=== PATIENT | male | born 2000 | race Caucasian/White ===

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

== ENCOUNTER 2022-07-31 16:34 | Emergency (ER) | payer OTHER, SELFPAY ==
--- NOTE | 2022-07-31 16:40 | ED.URI ---
HPI - URI/Sore Throat General Chief Complaint: Upper Respiratory Infection Stated Complaint: sore throat Time Seen by Provider: 07/31/22 16:40 Source: patient and RN notes reviewed History of Present Illness HPI Narrative: patient is a 21-year-old male presents to the Urgent Care with complaints of a sore throat for the last 2 days. Also reports of headache. Denies fever, nausea, vomiting or ill exposures. States that he has been taking Tylenol, ibuprofen and using cough drops. No other acute complaints. No acute distress noted. Patient aware of the plan of care. Some parts of this dictation were generated by voice recognition software and may contain typographical and/or grammatical inaccuracies. Related Data Home Medications Medication Instructions Recorded Confirmed No Home Medications 07/31/22 07/31/22 Allergies Allergy/AdvReac Type Severity Reaction Status Date / Time No Known Allergies Allergy Verified 05/19/21 11:22 Review of Systems Review of Systems: CONSTITUTIONAL: Denies fever, chills, or sweats. EYES: Denies visual changes, redness, or discharge. ENT: Denies rhinorrhea, congestion, Otalgia. Reports a sore throat CARDIOVASCULAR: Denies chest pain, palpitations, or edema. RESPIRATORY: Denies cough or dyspnea. GASTROINTESTINAL: Denies abdominal pain, nausea, vomiting, or diarrhea. GENITOURINARY: Denies dysuria or hematuria. SKIN: Denies rash or itching. MUSCULOSKELETAL: Denies back pain, joint pain, or myalgia. NEUROLOGIC: reports of headache All other systems reviewed are negative, except as documented in HPI. PMFSH Comments At the time of my signature, I reviewed and agree with the nursing past medical, surgical, social, and family history. There is no relevant family history pertinent to the patient complaint. Exam Narrative: GENERAL: This is a well-nourished, well-developed patient, in no apparent distress. HEAD: normocephalic, atraumatic. EYES: PERRL. Sclera clear/white. Vision is grossly intact. EARS: External ears normal, auditory canals clear and without drainage, TMs normal without perforation. Hearing grossly intact. NOSE: External nose normal with no obvious nasal discharge, nares without redness, no rhinorrhea. THROAT: Mucous membranes moist, mild erythema in the posterior oropharynx without exudate or ulceration. Moderate Postnasal drainage NECK: Neck supple, non-tender without lymphadenopathy CARDIOVASCULAR: Regular rate and rhythm without murmurs, gallops, or rubs. RESPIRATORY: Clear to auscultation. Breath sounds equal bilaterally. No wheezes, rales, or rhonchi. SKIN: warm, intact with no suspicious lesions or rash, good texture and turgor. NEURO: awake, alert, and oriented to person, place and time. There were no obvious focal neurologic abnormalities. EXTREMITIES: No clubbing, cyanosis, or edema. Course Course Level of Care: Express Care Visit Vital Signs Vital signs: Vital Signs Temperature 98.2 F 07/31/22 16:50 Pulse Rate 104 H 07/31/22 16:50 Respiratory Rate 16 07/31/22 16:50 Blood Pressure 123/67 07/31/22 16:50 Pulse Oximetry 98 07/31/22 16:50 Oxygen Delivery Room Air 07/31/22 16:50 Temperature 98.2 F 07/31/22 16:50 Pulse Rate 104 H 07/31/22 16:50 Respiratory Rate 16 07/31/22 16:50 Blood Pressure 123/67 07/31/22 16:50 Pulse Oximetry 98 07/31/22 16:50 Oxygen Delivery Room Air 07/31/22 16:50 reviewed MDM - URI/Sore Throat MDM Narrative Medical decision making narrative: due to the lack of resources, unable to do a rapid strep test in the facility. We will culture the strep and sent to the lab. Culture takes approximately 2-3 days for results and we will only call for positives. Advised the patient take a daily antihistamine such as Claritin / Zyrtec/Benadryl. Use Tylenol/ ibuprofen as needed. Follow-up with your PCP within 2-5 days or for worsening symptoms or failure to improve. Differential Diagnosis Differ
[2022-07-31 16:50] VITALS: BP 123/67; PULSE 104; RESP 16; TEMP 36.8; O2SAT 98
== END 2022-07-31 17:20 | disposition home or self-care (01) ==
PROVIDERS: Emergency Provider Nurse Practitioner Family
DX: J02.9 Acute pharyngitis, unspecified (principal)
CPT/HCPCS: 87081; 99212; G0463

== ENCOUNTER 2023-04-23 11:05 | Emergency (ER) | payer OTHER, SELFPAY ==
[2023-04-23 11:17] VITALS: BP 125/69; PULSE 100; RESP 16; TEMP 36.7; O2SAT 100
--- NOTE | 2023-04-23 12:35 | ED.BACK ---
HPI - Back Pain/Injury General Chief Complaint: Back Pain/Injury Stated Complaint: Lower Left Flank Pain Source: patient, RN notes reviewed and old records reviewed Mode of arrival: ambulatory Limitations: no limitations History of Present Illness MD elicited complaint: back pain Related Data Home Medications Medication Instructions Recorded Confirmed No Home Medications 07/31/22 04/23/23 Allergies Allergy/AdvReac Type Severity Reaction Status Date / Time No Known Allergies Allergy Verified 04/23/23 11:21 Review of Systems Review of Systems: CONSTITUTIONAL: Denies fever, chills, or sweats. CARDIOVASCULAR: Denies chest pain, palpitations, or edema. RESPIRATORY: Denies cough or dyspnea. GASTROINTESTINAL: Denies abdominal pain, nausea, vomiting, or diarrhea. GENITOURINARY: Denies dysuria or hematuria. SKIN: Denies rash or itching. MUSCULOSKELETAL: Reports back pain. Joint pain or myalgia. NEUROLOGIC: Denies headache, numbness, or weakness. All systems reviewed & are unremarkable except as noted in HPI and below PMFSH Comments At time of signature, agree with nursing past medical, surgical, social and family history. There is no relevant family history pertinent to the presenting complaint Exam Narrative: GENERAL: Well-appearing, well-nourished, and in no acute distress. HEAD: Normocephalic, atraumatic. EYES: PERRLA and EOMI. NECK: Supple. No lymphadenopathy. CHEST: Clear to auscultation. No respiratory distress. HEART: Regular rate and rhythm. Distal pulses palpable and equal, cap refill <3 seconds ABDOMEN: Soft, nontender, nondistended, normal active bowel sounds, no palpable or pulsatile masses. No CVA tenderness MUSCULOSKELETAL: Normal range of motion and strength in all extremities; 5/5 strength with hip flexion and extension, dorsiflexion and extension, knee flexion and extension, plantar flexion and extension. Normal sensation in dermatomal distributions with sensitivity to light touch and pain. No midline back tenderness to palpation. No paraspinal tenderness. Transfers from lying to sitting to standing. SKIN: Warm, dry, no rash. No ecchymosis, erythema, open wounds to back. NEURO: No focal deficits. Alert and oriented x3. Reflexes intact. Normal gait. PSYCH: Normal mood and affect Course Course Emergency Course: Patient is aware of diagnosis, understands and agrees to treatment plan. Anticipatory guidance given. Patient agrees to follow-up as directed and is aware of reasons to seek care at the emergency department. Portions of this record may have been created with voice recognition software Level of Care: Express Care Visit Vital Signs Vital signs: Vital Signs Oxygen Delivery Room Air 04/23/23 11:15 Temperature 36.7 C 04/23/23 11:17 Pulse Rate 100 04/23/23 11:17 Respiratory Rate 16 04/23/23 11:17 Blood Pressure 125/69 04/23/23 11:17 Pulse Oximetry 100 04/23/23 11:17 Oxygen Delivery Room Air 04/23/23 11:17 Reviewed MDM - Back Pain/Injury MDM Narrative Medical decision making narrative: No risk factors or findings concerning for epidural abscess, diskitis, vertebral osteomyelitis, cord compression, cauda equina, vertebral fracture or bone malignancy, AAA, or pyelonephritis. Patient instructed to consider further imaging and workup through their primary care physician as an outpatient if symptoms persist. Discharge Plan Discharge Prescriptions: No Action No Home Medications Follow-up/Referrals: PHYSICIAN,HAULING CONTRACTOR [Primary Care Provider] - [place] Coma Scale Eyes: Open Verbal: Oriented and Alert
--- NOTE | 2023-04-23 12:46 | PC.NURSE ---
PT NOT IN ROOM WHEN PROVIDER WENT IN FOR EXAM.
--- NOTE | 2023-04-23 12:47 | PC.NURSE ---
Addendum entered by Alee Cleaning RN 04/23/23 12:48: PT WAS SPOKEN WITH AT 1230 Original Note: PT IS SITTING IN CHAIR IN EXAM ROOM AT THIS TIME AWAITING PROVIDER EXAM. PT DENIES ANY NEEDS OR COMPLAINTS.
== END 2023-04-23 12:50 | disposition left against medical advice (07) ==
LOC: EXPBETH 11:09
PROVIDERS: Emergency Provider Registered Nurse
DX: Z53.21 Procedure and treatment not carried out due to patient leaving prior to being seen by health care provider (principal)
CPT/HCPCS: 99199

== ENCOUNTER 2023-06-16 13:26 | Emergency (ER) | payer OTHER, SELFPAY ==
[2023-06-16 13:30] VITALS: BP 108/54; PULSE 78; RESP 16; TEMP 37; O2SAT 100
--- NOTE | 2023-06-16 14:33 | ED.SKABFB ---
HPI - Skin/Abscess/Foreign Bdy General Chief complaint: Urogenital-Male Stated complaint: skin lesion on penis Time Seen by Provider: 06/16/23 14:28 Source: patient and RN notes reviewed Mode of arrival: ambulatory Limitations: no limitations History of Present Illness HPI narrative: Patient presents today complaining of a sore to his penis that he just noticed today. States that is painful, especially with touching the area. Denies any additional symptoms to include urethral discharge, pain to the testicles. Related Data Allergies Allergy/AdvReac Type Severity Reaction Status Date / Time No Known Allergies Allergy Verified 06/16/23 13:46 Review of Systems Review of Systems: CONSTITUTIONAL: Denies body aches, fever, chills, or sweats. EYES: Denies visual changes, redness, or discharge. ENT: Denies rhinorrhea, congestion, sore throat, or otalgia. CARDIOVASCULAR: Denies chest pain, palpitations, or edema. RESPIRATORY: Denies cough or dyspnea. GASTROINTESTINAL: Denies abdominal pain, nausea, vomiting, or diarrhea. GENITOURINARY: Denies dysuria or hematuria. SKIN: + penile lesion MUSCULOSKELETAL: Denies back pain, joint pain, or myalgia. NEUROLOGIC: Denies headache, numbness, tingling, or weakness. PSYCH: Denies depression or anxiety. PMFSH Comments At time of signature, I have reviewed and agree with nursing past medical, surgical, social and family history unless otherwise noted. Please see nursing chart for further information. There is no relevant family history pertinent to the presenting complaint Exam Narrative: GENERAL: Well-appearing, well-nourished, and in no acute distress. HEAD: Normocephalic, atraumatic. EYES: EOMI. No redness or drainage. Conjunctivae normal. ENT: Mucous membranes pink and moist. NECK: Normal AROM. CHEST: No respiratory distress. EXTREMITIES: Normal range of motion. No edema. SKIN: Warm, dry, no rash. Capillary refill normal. Normal skin turgor. Pinpoint pustule to the proximal shaft where patient seems to shave his pubic hair. Patient also has a small flesh colored nodule to the mid shaft area that is tender to palpation. Exam chaperoned by Sharee Cummins RN NEURO: No focal deficits. Alert and oriented x3. Gait steady. PSYCH: Normal affect. No signs of depression or anxiety. Course Course Level of Care: Express Care Visit Vital Signs Vital signs: Vital Signs Temperature 98.6 F 06/16/23 13:30 Pulse Rate 78 06/16/23 13:30 Respiratory Rate 16 06/16/23 13:30 Blood Pressure 108/54 L 06/16/23 13:30 Pulse Oximetry 100 06/16/23 13:30 Oxygen Delivery Room Air 06/16/23 13:30 Temperature 98.6 F 06/16/23 13:30 Pulse Rate 78 06/16/23 13:30 Respiratory Rate 16 06/16/23 13:30 Blood Pressure 108/54 L 06/16/23 13:30 Pulse Oximetry 100 06/16/23 13:30 Oxygen Delivery Room Air 06/16/23 13:30 Reviewed MDM - Skin/Abscess/Foreign Bdy MDM Narrative Medical decision making narrative: Will treat patient with a course of Bactrim and mupirocin. Instructed to follow-up with a PCP or sexual health clinic if symptoms do not improve. Patient is agreeable to plan. Differential Diagnosis Differential diagnosis: Likely abscess of skin or subcutaneous tissue, cellulitis, impetigo and other (Folliculitis) Critical Care Time Critical Care Time Critical Care Time: No Discharge Plan Discharge Clinical Impression: Folliculitis, Skin nodule Patient Disposition: Home, Self-Care Condition: Stable Instructions: Antibiotic Form Additional Instructions: Please take the Bactrim and use the mupirocin as directed. If symptoms do not improve within 1 week, please follow-up with the PCP or at the sexual health clinic. You have been given resources for both. Prescriptions: New sulfamethoxazole-trimethoprim [Bactrim DS] 800-160 mg tablet 1 tablet PO Q12H 7 Days Qty: 14 0RF mupirocin 2 % ointment 1 applic topical BID 7 Days Qty: 2
== END 2023-06-16 14:40 | disposition home or self-care (01) ==
PROVIDERS: Emergency Provider Nurse Practitioner
DX: L73.9 Follicular disorder, unspecified (principal); N48.89 Other specified disorders of penis
CPT/HCPCS: 99213; G0463

== ENCOUNTER 2023-11-29 18:59 | Emergency (ER) | payer OTHER, SELFPAY ==
[2023-11-29 19:08] VITALS: BP 140/65; PULSE 84; RESP 16; TEMP 37.1; O2SAT 100
--- NOTE | 2023-11-29 19:31 | ED.MALEGU ---
HPI - Male Genitourinary General Chief complaint: Urogenital-Male Stated complaint: STD Test/Irriatation Time Seen by Provider: 11/29/23 19:23 Source: patient and RN notes reviewed Mode of arrival: ambulatory Limitations: no limitations History of Present Illness HPI Narrative: Patient presents today complaining of a, ?pimple? on the shaft of his penis x3 days. Reports this area has become swollen since yesterday with increased pain. Denies any additional symptoms to include testicular pain or swelling, urethral discharge, dysuria. He has had the same sexual partner for approximately 1 year and has no concerns for sexually transmitted infections. He has tried some Neosporin without relief. He had something similar back in June 2023 and was treated with Bactrim and mupirocin, which he does state eventually resolved his symptoms. Patient does shave and trim his pubic area. He subsequently had some blood work and urine testing done at his PCPs office and was negative for any STIs. Related Data Allergies Allergy/AdvReac Type Severity Reaction Status Date / Time No Known Allergies Allergy Verified 06/16/23 13:46 Review of Systems Review of Systems: CONSTITUTIONAL: Denies body aches, fever, chills, or sweats. EYES: Denies visual changes, redness, or discharge. ENT: Denies rhinorrhea, congestion, sore throat, or otalgia. CARDIOVASCULAR: Denies chest pain, palpitations, or edema. RESPIRATORY: Denies cough or dyspnea. GASTROINTESTINAL: Denies abdominal pain, nausea, vomiting, or diarrhea. GENITOURINARY: Denies dysuria or hematuria. SKIN: lesion to penis MUSCULOSKELETAL: Denies back pain, joint pain, or myalgia. NEUROLOGIC: Denies headache, numbness, tingling, or weakness. PSYCH: Denies depression or anxiety. PMFSH Comments At time of signature, I have reviewed and agree with nursing past medical, surgical, social and family history unless otherwise noted. Please see nursing chart for further information. There is no relevant family history pertinent to the presenting complaint Exam Narrative: GENERAL: Well-appearing, well-nourished, and in no acute distress. HEAD: Normocephalic, atraumatic. EYES: EOMI. No redness or drainage. Conjunctivae normal. ENT: Mucous membranes pink and moist. NECK: Normal AROM. CHEST: No respiratory distress. : 2x2mm pustule to the midshaft of the penis surrounded by scant erythema. Tender to palpation. Area of the penis has been trimmed of hair. EXTREMITIES: Normal range of motion. No edema. SKIN: Warm, dry, no rash. Capillary refill normal. Normal skin turgor. NEURO: No focal deficits. Alert and oriented x3. Gait steady. PSYCH: Normal affect. No signs of depression or anxiety. Course Course Level of Care: Express Care Visit Vital Signs Vital signs: Vital Signs Temperature 98.8 F 11/29/23 19:08 Pulse Rate 84 11/29/23 19:08 Respiratory Rate 16 11/29/23 19:08 Blood Pressure 140/65 11/29/23 19:08 Pulse Oximetry 100 11/29/23 19:08 Oxygen Delivery Room Air 11/29/23 19:08 Temperature 98.8 F 11/29/23 19:08 Pulse Rate 84 11/29/23 19:08 Respiratory Rate 16 11/29/23 19:08 Blood Pressure 140/65 11/29/23 19:08 Pulse Oximetry 100 11/29/23 19:08 Oxygen Delivery Room Air 11/29/23 19:08 Reviewed MDM - Male Genitourinary MDM Narrative Medical decision making narrative: Lesion appears to be folliculitis, given appearance and history of shaving. Will treat with Keflex and mupirocin. Will follow up with PCP if symptoms do not resolve. Differential Diagnosis Differential diagnosis: Likely genital herpes simplex and other (Folliculitis, syphillis, genital wart) Discharge Plan Discharge Clinical Impression: Folliculitis Patient Disposition: Home, Self-Care Condition: Stable Instructions: Antibiotic Form Additional Instructions: Please take the Keflex and using mupirocin as directed. Do not trim or shave until this has
== END 2023-11-29 19:38 | disposition home or self-care (01) ==
PROVIDERS: Emergency Provider Nurse Practitioner
DX: L73.9 Follicular disorder, unspecified (principal)
CPT/HCPCS: 99213; G0463